=== PATIENT | female | born 1955 | race Caucasian/White ===

== ENCOUNTER → 2016-10-21 | Outpatient (CLI) | payer BC | LOC: EXRD 13:09 | DX: M80.08XA Age-related osteoporosis with current pathological fracture, vertebra(e), initial encounter for fracture (principal) | CPT/HCPCS: 77080 ==

== ENCOUNTER → 2020-09-01 | Outpatient (CLI) | payer OTHER ==
[~2020-09-01] MED LIST: IBUPROFEN800 MG PO; ZOFRAN 4 MG TAB4 MG PO
== END ==
LOC: HEART CORB 08-20 11:00
DX: I10 Essential (primary) hypertension (principal); R55 Syncope and collapse; I70.0 Atherosclerosis of aorta; I07.1 Rheumatic tricuspid insufficiency
CPT/HCPCS: 93306